=== PATIENT | female | born 1975 | race Hispanic/Latino ===

== ENCOUNTER 2017-10-20 12:26 | Outpatient (CLI) | payer OTHER | END 2017-10-20 12:27 | disposition home or self-care (01) | LOC: BICRAD 12:26 | PROVIDERS: ATTEND Physician Assistant | DX: S99.921A Unspecified injury of right foot, initial encounter (principal) ==

== ENCOUNTER 2018-12-14 09:48 | Outpatient (CLI) | payer OTHER ==
--- NOTE | 2018-12-14 11:52 | ULT ---
PELVIC ULTRASOUND: HISTORY: Pelvic pain. TECHNIQUE: Real-time imaging of the pelvis was obtained transabdominally, as well as with an endovaginal probe. FINDINGS: This showed an enlarged, heterogeneous appearing uterus that measures 7.7 x 10.5 x 11 cm. The endome trium is in the 6 mm range. There are calcifications in the fundus region of the uterus, associated with what appear to be some fairly pronounced fibromatous changes. There is a left ovarian cyst present. It measures 3.5 cm. The right adnexa is difficult to visualiz ed but appears unremarkable. On Doppler evaluation with spectral analysis, there is normal flow shown to the ovaries. IMPRESSION: 1. Enlarged, heterogeneous, fibromatous appearing uterus. It is somewhat difficult to define discre te fibroids. 2. Left ovarian cyst. POS: [facility]
== END 2018-12-14 09:49 | disposition home or self-care (01) ==
LOC: BICULT 09:48
PROVIDERS: ATTEND Physician Assistant
DX: R10.2 Pelvic and perineal pain (principal); N85.2 Hypertrophy of uterus; N83.202 Unspecified ovarian cyst, left side
CPT/HCPCS: 76856